=== PATIENT | female | born 1960 | race African-American/Black ===

== ENCOUNTER 2022-07-27 09:02 | Outpatient (CLI) | payer BC | END 2022-07-27 09:03 | disposition home or self-care (01) | LOC: CSHCT 09:02 | PROVIDERS: ATTEND Nurse Practitioner Family | DX: N13.39 Other hydronephrosis (principal); R31.0 Gross hematuria; R93.89 Abnormal findings on diagnostic imaging of other specified body structures; R93.5 Abnormal findings on diagnostic imaging of other abdominal regions, including retroperitoneum; R31.21 Asymptomatic microscopic hematuria; N28.1 Cyst of kidney, acquired | CPT/HCPCS: 74178; 82565 ==